=== PATIENT | female | born 1975 | race Caucasian/White ===

== ENCOUNTER 2018-12-23 07:45 | Outpatient (CLI) | payer OTHER | END 2018-12-23 07:53 | disposition home or self-care (01) | LOC: SONOGRAMA 07:45 | DX: E04.1 Nontoxic single thyroid nodule (principal) ==

== ENCOUNTER 2021-06-09 07:43 | Outpatient (CLI) | payer OTHER | END 2021-06-09 08:24 | disposition home or self-care (01) | LOC: SONOGRAMA 07:43 | PROVIDERS: ATTEND Pathology Anatomic Pathology & Clinical Pathology | DX: E04.1 Nontoxic single thyroid nodule (principal); R59.0 Localized enlarged lymph nodes ==